=== PATIENT | male | born 1945 | race Two or more races ===

== ENCOUNTER 2022-06-26 20:59 | Emergency (ER) | payer MEDICARE, OTHER ==
[~2022-06-26] VITALS: Ht 182.9 cm; Wt 75.0 kg
[2022-06-26] MEDS ORDERED: LEVO-28 PO (22:37)
[2022-06-26 23:07] LABS: Basophils # (auto) 0.1 10 ^3/uL (0-0.2); Basophils % (auto) 1.3 % (0.0-2.0); Eosinophils # (auto) 0.1 10 ^3/uL (0-0.8); Eosinophils % (auto) 1.8 % (0.0-7.0); Hematocrit 36.4 % (41.0-53.0); Hemoglobin 12.7 g/dL (13.5-17.5); Lymphocytes # (auto) 2.3 10 ^3/uL (0.4-5.4); Lymphocytes % (auto) 40.3 % (10.0-50.0); Mean Corpuscular Hemoglobin 33.4 pg (28.0-32.0); Mean Corpuscular Volume 95.3 fL (80.0-100.0); Monocytes # (auto) 0.6 10 ^3/uL (0-1.3); Monocytes % (auto) 11.1 % (0.0-12.0); Neutrophils # (auto) 2.7 10 ^3/uL (1.6-8.6); Neutrophils % (auto) 45.5 % (37.0-80.0); Nucleated Red Blood Cells % 0.1 %; Red Blood Cells 3.82 10^6/uL (4.5-5.90); Red Cell Distribution Width 13.5 % (11.8-14.3); White Blood Cell 5.8 10^3/uL (4.4-10.8)
[2022-06-26 23:24] LABS: Albumin 3.7 g/dL (3.4-5.0); Calcium 8.7 mg/dL (8.5-10.1); Magnesium 1.7 mg/dL (1.6-2.6); Potassium 3.7 mmol/L (3.5-5.1); Salicylate < 1.7 mg/dL (2.8-20.0)
[2022-06-26 23:26] LABS: BUN/Creatinine Ratio 7.4
[2022-06-26 23:29] LABS: Bilirubin, Total 0.5 mg/dL (0.2-1.0); Total Protein 7.5 g/dL (6.4-8.2)
[2022-06-26 23:33] LABS: Acetaminophen < 2.0 ug/mL (10-30)
[2022-06-26 23:34] LABS: INR 1.02 (0.9-1.15); Partial Thromboplastin Time 33.6 sec (24.6-33.4)
[2022-06-26 23:52] VITALS: BP 156/81
[2022-06-28] MEDS ORDERED: LEVO-28 PO (04:36)
== END 2022-06-26 23:52 | disposition home or self-care (01) ==
LOC: EDBD 20:59 → ER 21:06
DX: S09.8XXA Other specified injuries of head, initial encounter (principal); J18.9 Pneumonia, unspecified organism; R94.31 Abnormal electrocardiogram [ECG] [EKG]; W18.39XA Other fall on same level, initial encounter; Y93.89 Activity, other specified; Y92.89 Other specified places as the place of occurrence of the external cause; Y99.8 Other external cause status
CPT/HCPCS: 36415; 70450; 71250; 72125; 74176; 80053; 80320; 80329; 83735; 84484; 85025; 85610; 85730; 93005